=== PATIENT | male | born 1935 | race Caucasian/White ===

== ENCOUNTER 2017-10-05 06:29 | Day surgery (SDC) | payer MEDICARE ==
[~2017-10-05] VITALS: Ht 172.7 cm; Wt 107.3 kg
[2017-10-05] VITALS (7 sets, daily range): BP systolic 108–155; BP diastolic 54–70; PULSE 50–64; RESP 17–19; TEMP 97.7–98.4; O2SAT 93–97
[~2017-10-05 06:29] MED LIST: ATOR40TA PO; CO Q50CA PO; ENOX40P SQ; FISH100020 PO; HYDR-3580 PO; LEVO100T4 PO; TAMS0.4C67 PO; Z.0.COMMODE-3:1; Z.0.WALKERFRONT
[2017-10-05] MEDS ORDERED: ATOR40TA16 PO (07:30)
[2017-10-05] MEDS ORDERED: UBID50CA4 PO (07:31)
[2017-10-05] MEDS ORDERED: LEVO100T5 PO (07:33)
[2017-10-05] MEDS ORDERED: OMEGCAP PO (07:34)
[2017-10-05] MEDS ORDERED: TAMS5CAP PO (07:35)
[2017-10-05] MEDS ORDERED: SODIUM CHLOR 0.9% 1000 ML INJ 1,000 ML IV SCH (07:45)
[2017-10-05] MEDS ORDERED: MIDAZOLAM HCL 2 MG/2 ML VIAL ONE (08:12)
--- NOTE | 2017-10-05 09:07 | PD.RAD ---
Post CT Procedure Prog Note Pre Procedure Diagnosis: (1) Renal mass, left Post Procedure Diagnosis: (1) Renal mass, left Procedure Date: Oct 05, 2017 Supervising Radiologist: Dmitriy Pandya Estimated blood loss: minimal. Anesthesia: Conscious Sedation Plan of Activity Patient to Unit: [facility] Patient Condition: Good See PACS Report for procedural detail/treatment Biopsy Imaging Guidance: CT Side: Left Biopsy Procedure: Kidney Site: left upper pole renal mass. Specimen: Core Biopsy Plan to [facility] for monitoring then discharge in 4 hours if criteria met. Dmitriy Pandya MD Oct 05, 2017 09:07
--- NOTE | 2017-10-05 09:54 | RADRPT ---
EXAM DATE: 10/05/2017 9:22 AM EDT AGE/SEX: 82 years / Male INDICATIONS: Left renal mass CLINICAL DATA: This is the patient's initial encounter. Patient reports that signs and symptoms have been present for 1 day and indicates a pain score of 0/10. MEDICAL/SURGICAL HISTORY: Carcinoma, prostatic. None. COMPARISON: [facility], CT ABDOMEN AND PELVIS W/ CONTRAST, 08/18/2017. . BIOPSY SITE: Left renal MEDICATION(S): 2 mg midazolam (Versed) IV 125mcg fentanyl (Sublimaze) IV DEVICE(S): 20 gauge BARD biopsy needle 19 gauge Introducer Four . . PROCEDURE: CT guided Left renal biopsy Prior to the procedure informed consent was obtained. Any appropriate prior imaging studies were rev iewed. Using automated exposure control and adjustment of the mA and/or kV according to patient size, radiat ion dose was kept as low as reasonably achievable to obtain optimal diagnostic quality images. DICOM format image data is available electronically for review and comparison. The site was prepped in a sterile fashion. Full sterile technique was used, including cap, mask, briana rile gloves and gown and a large sterile sheet. Hand hygiene and 2% chlorhexidine and/or betadine/al cohol prep was utilized per protocol for cutaneous antisepsis. The skin and subcutaneous tissues wer e infiltrated with local anesthetic solution. With CT guidance the previously identified target was localized. Biopsy was performed using the presc ribed needle as above. Adequate hemostasis was obtained with compression at the puncture site. Follow-up CT scan reveals mild perinephric hemorrhage. The patient tolerated the procedure well and there were no complications. The patient was returned to the Radiology Outpatient Unit in stable condition. CONCLUSION: 1. Uncomplicated CT guided biopsy of the left upper pole renal mass is centimeters this mass. Electronically signed by: Dmitriy Pandya MD 10/05/2017 9:52 AM EDT
== END 2017-10-05 12:49 | disposition home or self-care (01) ==
LOC: HRAD 06:29 → HRIP 06:35 → HRAD 12:49
PROVIDERS: ATTEND Urology
DX: C64.2 Malignant neoplasm of left kidney, except renal pelvis (principal)
CPT/HCPCS: 50200; 77012; 88305; J2250; J3010; J7030